=== PATIENT | female | born 1985 | race Caucasian/White ===

== ENCOUNTER 2017-01-20 12:36 | Emergency (ER) | payer OTHER ==
[2017-01-20 12:42] VITALS: BMI 23.0
--- NOTE | 2017-01-20 15:20 | PDOC ---
History of Present Illness - History of Present Illness Initial Comments: 01/20/17 16:55 Patient is a 31 year old female with no significant medical hx who is presenting to the ED with 24 hours of worsening RLQ pain. The patient complains of RLQ pain with some radiation to her suprapubic region. She reports her pain worsens with any kind of movement including standing, sitting down, and walking. The patient describes her pain as if there is a balloon expanding within her abdomen. She states that she is on the third day of her menses but her pain does not feel like a menstrual cramp. Patient also endorses some mild dysuria, nausea, and severe headache. She denies any fever, chills, vaginal discharge, vomiting, diarrhea, or past abdominal surgeries. <Liz Reid - Last Filed: 01/20/17 18:31> <Marlyn Forte - Last Filed: 01/20/17 18:49> - General Chief Complaint: Pain, Acute Stated Complaint: ABDOMINAL PAIN Time Seen by Provider: 01/20/17 15:01 Past History <Liz Reid - Last Filed: 01/20/17 18:31> - Past Medical History Other medical history: PATIENT DENIES MEDICAL HISTORY - Psycho/Social/Smoking Cessation Hx Suicidal Ideation: No Smoking History: Current every day smoker Number of Cigarettes Smoked Daily: 10 Information on smoking cessation initiated: No Hx Alcohol Use: Yes Drug/Substance Use Hx: No <Marlyn Forte - Last Filed: 01/20/17 18:49> - Past Medical History Allergies/Adverse Reactions: Allergies Allergy/AdvReac Type Severity Reaction Status Date / Time No Known Allergies Allergy Verified 01/20/17 12:42 Review of Systems - Review of Systems Comments:: 01/20/17 16:56 GENERAL/CONSTITUTIONAL: No fever or chills. No weakness. HEAD, EYES, EARS, NOSE AND THROAT: No change in vision. No ear pain or discharge. No sore throat. CARDIOVASCULAR: No chest pain or shortness of breath. RESPIRATORY: No cough, wheezing, or hemoptysis. GASTROINTESTINAL: RLQ pain, nausea. No vomiting, diarrhea or constipation. GENITOURINARY: Dysuria. No frequency, or change in urination. MUSCULOSKELETAL: No joint or muscle swelling or pain. No neck or back pain. ENDOCRINE: No increased thirst. No abnormal weight change. SKIN: No rash NEUROLOGIC: Headache. No vertigo, loss of consciousness, or change in strength/ sensation. <Liz Reid - Last Filed: 01/20/17 18:31> *Physical Exam - Vital Signs Last Vital Signs Temp Pulse Resp BP Pulse Ox 98.1 F 119 H 20 120/98 98 01/20/17 12:39 01/20/17 12:39 01/20/17 12:39 01/20/17 12:39 01/20/17 12:39 - Physical Exam Comments: 01/20/17 16:57 GENERAL: Awake, alert, and fully oriented, in no acute distress HEAD: No signs of trauma EYES: PERRLA, EOMI, sclera anicteric, conjunctiva clear ENT: Auricles normal inspection, hearing grossly normal, nares patent, oropharynx clear without exudates. Moist mucosa NECK: Normal ROM, supple, no lymphadenopathy, JVD, or masses LUNGS: Breath sounds equal, clear to auscultation bilaterally. No wheezes, and no crackles HEART: Regular rate and rhythm, normal S1 and S2, no murmurs, rubs or gallops ABDOMEN: Soft, RLQ tenderness with guarding but no rebound, normoactive bowel sounds. No masses EXTREMITIES: Normal range of motion, no edema. No clubbing or cyanosis. No cords, erythema, or tenderness NEUROLOGICAL: Cranial nerves II through XII grossly intact. Normal speech, normal gait SKIN: Warm, Dry, normal turgor, no rashes or lesions noted. HEMATOLOGIC/LYMPHATIC: No anemia, easy bleeding, or history of blood clots. ALLERGIC/IMMUNOLOGIC: No hives or skin allergy. PELVIC: Moderate amount of brownish discharge with no discharge from os. No CMT. Right greater than left adnexal tenderness. <Liz Reid - Last Filed: 01/20/17 18:31> - Vital Signs Last Vital Signs Temp Pulse Resp BP Pulse Ox 98.1 F 119 H 20 120/98 98 01/20/17 12:39 01/20/17 12:39 01/20/17 12:39 01/20/17 12:39 01/20/17 12:39 <Marlyn Forte - Last Filed: 01/20/17 18:49> ED Treatment Course - LABORATORY CBC & Chemistry Diagram: 01/20/17 15:30 01/20/17 15:30 - ADDITIONAL ORDERS Additional order review: Laboratory Results 01/20/17 01/20/17 15:30 15:30 Sodium 139 Potassium 4.5 Chloride 103 Carbon Dioxide 25 Anion Gap 11 BUN 7 Creatinine 0.5 L Creat Clearance w eGFR > 60 Random Glucose 73 L Calcium 9.6 Total Bilirubin 0.6 AST 12 L ALT 20 Alkaline Phosphatase 78 Total Protein 7.0 Albumin 4.0 Urine Color Straw Urine Appearance Slcloudy Urine pH 5.0 Urine Protein Negative Urine Glucose (UA) Negative Urine Ketones Negative Urine Blood Negative Urine Nitrite Negative Urine Bilirubin Negative Urine Urobilinogen Negative Ur Leukocyte Esterase Negative 01/20/17 15:30 RBC 4.03 MCV 97.7 H MCHC 32.9 RDW 13.0 MPV 7.7 Neutrophils % 65.2 Lymphocytes % 26.3 Monocytes % 7.6 Eosinophils % 0.3 Basophils % 0.6 - RADIOLOGY Radiograph Interpretation: 01/20/17 18:31 Abdomen/Pelvis CT Impression: There is no definite CT evidence of acute appendicitis. No CT findings of acute pathology are identified. Reported By: Froy Sheets MD <Liz Reid - Last Filed: 01/20/17 18:31> - LABORATORY CBC & Chemistry Diagram: 01/20/17 15:30 01/20/17 15:30 <Marlyn Forte - Last Filed: 01/20/17 18:49> Medical Decision Making - Medical Decision Making 01/20/17 18:47 Patient presents to the ED complaining of RLQ abdominal pain. Labs are unremarkable. Not . Pelvic exam is inconsistent with PID. Initial concern for appendicitis, but CT is negative. Given negative test, pelvic exam and CT, serious intrabdominal pathology is unlikely. Will discharge home with PMD follow up. <Marlyn Forte - Last Filed: 01/20/17 18:49> *DC/Admit/Observation/Transfer - Attestations Scribe Attestion: 01/20/17 16:58 Documentation prepared by Liz Reid, acting as veterinary medical officer for Marlyn Forte MD. <Liz Reid - Last Filed: 01/20/17 18:31> - Discharge Dispostion Admit: No <Marlyn Forte - Last Filed: 01/20/17 18:49> Diagnosis at time of Disposition: Abdominal pain - Referrals Referrals: Surendra Smith MD, MD [Primary Care Provider] - - Patient Instructions Printed Discharge Instructions: DI for Abdominal Pain-Adult Additional Instructions: You came to the ED for abdominal pain. Your cat scan was negative, and we did not find an explanation for your pain. Because we are not sure what caused your pain, you should return immediately to the ED for worsening pain, especially pain with fever, pain with severe nausea or vomiting, bloody vomit or stool. Make sure you follow up with your primary care doctor or your [facility] within one week
[2017-01-20] MEDS ORDERED: KETOROLAC TROMETHAMINE 30 MG/1 ML VIAL IVPUSH ONE (15:22)
[2017-01-20 15:41] LABS: BASOPHIL 0.6 % (0-2.0); EOSINOPHIL 0.3 % (0-4.5); MCH 32.1 pg (25.7-33.7); MCHC 32.9 g/dl (32.0-36.0); MEAN CELL VOLUME 97.7 fl (80-96); MEAN PLT VOLUME 7.7 fl (7.5-11.1); NEUTROPHILS 65.2 % (42.8-82.8); PLATELET COUNT 321 K/MM3 (134-434); WHITE BLOOD COUNT 12.4 K/mm3 (4.0-10.0)
[2017-01-20 15:42] LABS: URINE APPEARANCE SLCLOUDY; URINE BILIRUBIN NEGATIVE (NEGATIVE); URINE BLOOD NEGATIVE (NEGATIVE); URINE COLOR STRAW; URINE GLUCOSE (UA) NEGATIVE (NEGATIVE); URINE KETONE NEGATIVE (NEGATIVE); URINE LEUK ESTERASE NEGATIVE (NEGATIVE); URINE NITRITE NEGATIVE (NEGATIVE); URINE PROTEIN NEGATIVE (NEGATIVE); URINE UROBILINOGEN NEGATIVE E.U./dl (0.2-1.0)
[2017-01-20 16:17] LABS: ALK PHOS 78 U/L (45-117); ANION GAP 11 (8-16); BILIRUBIN,TOTAL 0.6 mg/dL (0.2-1.0); CALCIUM 9.6 mg/dL (8.5-10.1); CO2 25 mmol/L (21-32); COCKROFT - GAULT 151.7505; CREATININE 0.5 mg/dL (0.55-1.02); GLUCOSE,RANDOM 73 mg/dL (74-106); SGOT/AST 12 U/L (15-37); SGPT/ALT 20 U/L (12-78)
[2017-01-20] MEDS ORDERED: morphine CARPU-JECT 4 MG/1 ML DISP.SYRIN IVPUSH ONE (17:02)
[2017-01-20] MEDS ORDERED: morphine CARPU-JECT 4 MG/1 ML DISP.SYRIN ONE (17:16)
[2017-01-20] MEDS ORDERED: KETOROLAC TROMETHAMINE 30 MG/1 ML VIAL ONE (18:29)
[2017-01-20 18:49] VITALS: BP 130/90; PULSE 74; TEMP 98.3
== END 2017-01-20 18:47 | disposition home or self-care (01) ==
LOC: JER 12:36
PROC: 3E0333Z Introduction of Anti-inflammatory into Peripheral Vein, Percutaneous Approach (ICD-10-PCS; principal; 2017-01-20)
PROC: 3E033GC Introduction of Other Therapeutic Substance into Peripheral Vein, Percutaneous Approach (ICD-10-PCS; 2017-01-20)
DX: R10.9 Unspecified abdominal pain (principal); F17.210 Nicotine dependence, cigarettes, uncomplicated
CPT/HCPCS: 36415; 74177-TC; 80053; 81003; 84703; 85025; 99281-25